=== PATIENT | female | born 1955 | race Caucasian/White ===

== ENCOUNTER 2016-08-09 14:57 | Outpatient (CLI) | payer OTHER | END 2016-08-09 14:58 | disposition home or self-care (01) | DX: N20.0 Calculus of kidney (principal) ==

== ENCOUNTER 2017-09-19 09:29 | Outpatient (CLI) | payer OTHER | END 2017-09-19 09:30 | disposition home or self-care (01) | LOC: LAB.F 09:29 | PROVIDERS: ATTEND Registered Nurse | DX: E21.0 Primary hyperparathyroidism (principal) | CPT/HCPCS: 36415; 83970 ==

== ENCOUNTER 2017-10-03 09:57 | Outpatient (CLI) | payer OTHER ==
--- NOTE | 2017-10-03 14:44 | DEXA Report ---
REVISED: REPORT ORIGINALLY SIGNED ON 10/03/2017@[id number]; ORDERS LINKED ON 2017 jll DEXA SCAN: 10/03/2017 CLINICAL INDICATION: Postmenopausal, history of hyperparathyroidism. TECHNIQUE: Dual energy x-ray absorptiometry (DXA) was performed on a [employer] system. Regions measured are the AP spine, femoral neck, and, if needed, forearm. COMPARISON: None. In accordance with the International Society for Clinical Densitometry (ISCD) guidelines, data from previous exams may be reanalyzed using current recommendations and techniques. This is done to allow a more accurate basis for comparison with the current study. FINDINGS Data for the lumbar spine is as follows: REGION BMD (g/cm/cm) T-SCORE Z-SCORE L1 0.853 -2.3 -1.2 L2 0.943 -2.1 -1.0 L3 1.018 -1.5 -0.4 L4 0.935 -2.2 -1.1 L1-L4 0.941 -2.0 -0.8 NOTE: All evaluable vertebrae are used for classification. Data for the hip is as follows: REGION BMD (g/cm/cm) T-SCORE Z-SCORE Neck 0.793 -1.8 -0.6 TOTAL 0.830 -1.4 -0.5 NOTE: The femoral neck or total proximal femur, whichever is lowest, is used for classification. Data for the forearm is as follows: REGION BMD (g/cm/cm) T-SCORE Z-SCORE 1/3 0.855 -0.2 0.8 NOTE: The 33% radius of the nondominant forearm is used for classification. IMPRESSION 1. WHO CLASSIFICATION BASED ON THE INTERNATIONAL REFERENCE STANDARD IS OSTEOPENIA. FRACTURE RISK IS INCREASED. 2. LEFT FOREARM PERFORMED, DUE TO HYPERPARATHYROIDISM. RECOMMENDATION: Patients with diagnosis of osteoporosis or osteopenia should have regular bone mineral density assessment. For those eligible for Medicare, routine testing is allowed once every 2 years. Testing frequency can be increased for patients who have rapidly progressing disease or for those who are receiving medical therapy to restore bone mass. COMMENT World Health Organization (WHO) definitions for osteoporosis and osteopenia: NORMAL BMD: T-score at 1.0 or higher, fracture risk is low. OSTEOPENIA BMD: T-score between 1.0 and -2.5, fracture risk is increased. OSTEOPOROSIS BMD: T-score at 2.5 or lower, fracture risk high. National Osteoporosis Foundation recommends: 1. Obtain adequate dietary calcium (at least 1200 mg per day) and vitamin D (400 -800 international units per day). 2. Participate, as appropriate, in regular weightbearing and muscle- strengthening exercise. 3. Avoid tobacco use and reduce alcohol and caffeine intake. 4. For more detailed information see the website at www.NOF.org. TD: 10/03/2017 11:03 CHARY
== END 2017-10-03 09:58 | disposition home or self-care (01) ==
LOC: DI 09:57
PROVIDERS: ATTEND Registered Nurse
DX: Z13.820 Encounter for screening for osteoporosis (principal); E21.0 Primary hyperparathyroidism; M85.832 Other specified disorders of bone density and structure, left forearm; M54.42 Lumbago with sciatica, left side
CPT/HCPCS: 77080; 77081

== ENCOUNTER 2019-12-24 11:11 | Outpatient (CLI) | payer OTHER ==
--- NOTE | 2019-12-24 16:57 | DEXA Report ---
Reason: OSTEOPENIA Procedure Date: 12/24/2019 Accession Number: [id number] / [id number] Procedure: DEX - Dexa Spine and/or Hip CPT Code: Final Report FULL RESULT: PROCEDURE: Dexa Spine and/or Hip INDICATIONS: OSTEOPENIA TECHNIQUE: Dual energy x-ray absorptiometry (DXA) was performed on a [employer] System. Regions measured are the AP Spine, femoral neck, and if needed forearm. COMPARISON: None. FINDINGS: Lumbar Spine: Bone Mineral Density 0.969 g/cm/cm,T score -1.8, osteopenia Left Hip: Bone Mineral Density 0.835 g/cm/cm,T score -1.4, osteopenia Left Femoral Neck: Bone Mineral Density 0.799 g/cm/cm, T score -1.7, osteopenia Left forearm: Bone Mineral Density 0.831 g/cm/cm, T score -0.5, normal (T score greater or equal to -1.0: NORMAL) (T score from -1.1 to -2.4: OSTEOPENIA) (T score less than or equal to -2.5 to: OSTEOPOROSIS) Impression: Osteopenia. Patients with diagnosis of osteoporosis or osteopenia should have regular bone mineral density assessment. For those eligible for Medicare, routine testing is allowed once every 2 years. Testing frequency can be increased for patients who have rapidly progressing disease or for those who are receiving medical therapy to restore bone mass. Reviewed by: Aida Reid MD, PhD on 12/24/2019 4:56 PM PDT Approved by: Aida Reid MD, PhD on 12/24/2019 4:56 PM PDT Station ID: [id number]
== END 2019-12-24 11:12 | disposition home or self-care (01) ==
LOC: DI 11:11
PROVIDERS: ATTEND Registered Nurse
DX: M85.89 Other specified disorders of bone density and structure, multiple sites (principal)
CPT/HCPCS: 77080; 77081

== ENCOUNTER 2022-02-09 09:47 | Outpatient (CLI) | payer MEDICARE ==
--- NOTE | 2022-02-10 08:37 | DEXA Report ---
PROCEDURE: Dexa Spine and/or Hip INDICATIONS: OSTEOPENIA TECHNIQUE: Dual energy x-ray absorptiometry (DXA) was performed on a [employer] System. Regions measur ed are the AP Spine, femoral neck, and if needed forearm. COMPARISON: 12/24/2019 FINDINGS: Lumbar Spine: Bone Mineral Density 0.964 g/cm/cm,T score -1.8, osteopenia. No significant change since before. Left Hip: Bone Mineral Density 0.894 g/cm/cm,T score -0.9, normal. There has been a significant interval incre ase in bone mineral density since the prior exam. Unclear if this represents true interval improvemen t or increase in degenerative changes. Left Femoral Neck: Bone Mineral Density 0.832 g/cm/cm, T score -1.5, osteopenia Left forearm: 1/3 radius Bone Mineral Density 0.846 g/cm/cm, T score -0.3, normal. No significant change since before (T score greater or equal to -1.0: NORMAL) (T score from -1.1 to -2.4: OSTEOPENIA) (T score less than or equal to -2.5 to: OSTEOPOROSIS) Impression: Osteopenia. Patients with diagnosis of osteoporosis or osteopenia should have regular bone mineral density assess ment. For those eligible for Medicare, routine testing is allowed once every 2 years. Testing frequ ency can be increased for patients who have rapidly progressing disease or for those who are receivin g medical therapy to restore bone mass. Reviewed by: Collins Perez MD on 02/10/2022 8:36 AM PDT Approved by: Collins Perez MD on 02/10/2022 8:36 AM PDT Station ID: [id number]
== END 2022-02-09 09:48 | disposition home or self-care (01) ==
LOC: DI 09:47
PROVIDERS: ATTEND Registered Nurse
DX: M85.89 Other specified disorders of bone density and structure, multiple sites (principal)

== ENCOUNTER 2024-01-18 10:40 | Outpatient (CLI) | payer MEDICARE ==
--- NOTE | 2024-01-18 20:30 | DEXA Report ---
PROCEDURE: Dexa Spine and/or Hip INDICATIONS: OSTEOPENIA TECHNIQUE: Dual energy x-ray absorptiometry (DXA) was performed on a [facility]. Regions measur ed are the AP Spine, femoral neck, and if needed forearm. COMPARISON: 02/09/2022 FINDINGS: Lumbar Spine: Bone Mineral Density: 0.920 g/cm/cm,T score: -2.2. Since the most recent prior study, there has been a statistically significant decrease in bone mineral density by 4.6 percent. Left Femoral Neck: Bone Mineral Density: 0.825 g/cm/cm, T score: -1.5. Left Hip: Bone Mineral Density: 0.872 g/cm/cm,T score: -1.1. There has been no statistically significant change in bone mineral density since the prior study. Left Forearm: Bone Mineral Density: 0.814 g/cm/cm, T score: -0.7. There has been no statistically significant thomas e in bone mineral density since the prior study. FRAX risk factors: 10 year risk of major osteoporotic fracture: 9.6% major osteoporotic fracture = hip, clinical vertebral, proximal humerus, distal forearm 10 year risk of hip fracture: 1.2% (T score greater or equal to -1.0: NORMAL) (T score from -1.1 to -2.4: OSTEOPENIA) (T score less than or equal to -2.5 to: OSTEOPOROSIS) Impression: By WHO criteria, this patient has low bone density (osteopenia). Interval statistical decrease in bone mineral density of the lumbar spine. No statistical interval ch keenan in bone mineral density of the hip. Patients with diagnosis of osteoporosis or osteopenia should have regular bone mineral density assess ment. For those eligible for Medicare, routine testing is allowed once every 2 years. Testing frequ ency can be increased for patients who have rapidly progressing disease or for those who are receivin g medical therapy to restore bone mass. Reviewed by: González Sánchez MD on 01/18/2024 8:28 PM PDT Approved by: González Sánchez MD on 01/18/2024 8:28 PM PDT Station ID: [id number]
== END 2024-01-18 10:41 | disposition home or self-care (01) ==
LOC: DI 10:40
PROVIDERS: ATTEND Physician Assistant
DX: M85.89 Other specified disorders of bone density and structure, multiple sites (principal)

== ENCOUNTER 2024-01-30 08:32 | Day surgery (SDC) | payer MEDICARE ==
[2024-01-30] MEDS: LACTATED RINGERS 1,000 ML IV ONE (08:47)
--- NOTE | 2024-01-30 09:51 | ANESTHESIA ---
Pre-Anesthesia VS, & Labs - Diagnosis SCREENING - Procedure COLONOSCOPY Vital Signs: Temp Pulse Resp BP Pulse Ox O2 Flow Rate 36.7 C 105 H 18 136/89 H 100 01/30/24 08:54 01/30/24 08:54 01/30/24 08:54 01/30/24 08:54 01/30/24 08:54 Height: 5 ft 2 in Weight (kg): 79.83 kg Body Mass Index: 32.1 BMI Classification: Obese - NPO >8 hours (BOWEL PREP COMPLETED) - Is Patient ?: No Home Medications and Allergies Home Medications: Ambulatory Orders Calcium 26/Vit D3/Magnesium 15 [[id number] Complx 167Mg Cp] 1 each PO DAILY 01/24/24 Cetirizine HCl [Allergy] 10 mg PO DAILY 01/24/24 Cholecalciferol [Vitamin D3] 50 mcg PO DAILY 01/24/24 Collagen/Biotin/Ascorbic Acid [Collagen 1500 Plus C Capsule] 2 each PO DAILY 01/24/24 Cyanocobalamin [Vitamin B-12] 500 mcg PO DAILY 01/24/24 Magnesium Citrate 250 mg PO DAILY 01/24/24 Multivitamin 1 each PO DAILY 01/24/24 [place]-3/Dha/Epa/Fish Oil [Fish Oil 1,000 mg Softgel] 2 each PO DAILY 01/24/24 Venlafaxine HCl [Effexor Xr] 150 mg PO DAILY 01/24/24 Calcium 26/Vit D3/Magnesium 15 [[id number] Complx 167Mg Cp] 1 each PO DAILY 01/24/24 Cetirizine HCl [Allergy] 10 mg PO DAILY 01/24/24 Cholecalciferol [Vitamin D3] 50 mcg PO DAILY 01/24/24 Collagen/Biotin/Ascorbic Acid [Collagen 1500 Plus C Capsule] 2 each PO DAILY 01/24/24 Cyanocobalamin [Vitamin B-12] 500 mcg PO DAILY 01/24/24 Magnesium Citrate 250 mg PO DAILY 01/24/24 Multivitamin 1 each PO DAILY 01/24/24 [place]-3/Dha/Epa/Fish Oil [Fish Oil 1,000 mg Softgel] 2 each PO DAILY 01/24/24 Venlafaxine HCl [Effexor Xr] 150 mg PO DAILY 01/24/24 Allergies/Adverse Reactions: Allergies Allergy/AdvReac Type Severity Reaction Status Date / Time No Known Drug Allergies Allergy Verified 01/24/24 11:40 Anes History & Medical History - Anesthetic History Anesthesia Complications: reports: No previous complications Family history of Anesthesia Complications: Denies Family history of Malignant Hyperthermia: Denies - Medical History Cardiovascular: reports: Murmur, 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), Other Pulmonary: reports: None Gastrointestinal: reports: Colon polyps Urinary: reports: None Neuro: reports: None Musculoskeletal: reports: None Endocrine/Autoimmune: reports: Other (HYPOPARATHYROIDISM) Blood Disorders: reports: None Skin: reports: None Smoking Status: Never smoker Psychosocial: reports: No issues indicated History of Cancer?: Yes (BREAST CANCER RESOLVED; RADIATION AND CHEMO RECEIVED; 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 ) - Surgical History General: reports: Colonoscopy Gynecologic: reports: Mastectomy, Other Results - EKG Results EKG Comparison: Reviewed EKG, Normal EKG Exam General: Alert, Oriented x3, Cooperative, No acute distress Dental: WNL Mouth Openin Fingerbreadth Neck Mobility: Normal Mallampati classification: III Mental/Cognitive Status: Alert/Oriented X3, Normal for patient Cognitive Status: Within normal limits Plan Anesthesia Type: General Consent for Procedure(s) Verified and Reviewed: Yes Code Status: Attempt Resuscitation ASA classification: 3-Severe systemic disease Is this case an emergency?: No
[2024-01-30] MEDS ORDERED: MIDAZOLAM 2 MG/2 ML VIAL ONE (10:05)
[2024-01-30] MEDS ORDERED: PROPOFOL 500 MG/50 ML 500 MG/50 ML VIAL ONE (10:06)
[2024-01-30] MEDS ORDERED: PROPOFOL 200 MG/20 ML VIAL IVP ONE (10:46)
[2024-01-30 11:33] VITALS: BP 120/75; O2SAT 100
== END 2024-01-30 08:33 | disposition home or self-care (01) ==
LOC: SDS 08:32
PROVIDERS: ATTEND Surgery
PROC: 0DBM8ZZ Excision of Descending Colon, Via Natural or Artificial Opening Endoscopic (ICD-10-PCS; 2024-01-30)
PROC: 0DBH8ZZ Excision of Cecum, Via Natural or Artificial Opening Endoscopic (ICD-10-PCS; principal; 2024-01-30 09:45)
DX: Z12.11 Encounter for screening for malignant neoplasm of colon (principal); K63.5 Polyp of colon; D12.0 Benign neoplasm of cecum; K64.1 Second degree hemorrhoids; E66.9 Obesity, unspecified; Z68.32 Body mass index [BMI] 32.0-32.9, adult; Z85.3 Personal history of malignant neoplasm of breast
CPT/HCPCS: 45380; J7120